=== PATIENT | male | born 1960 ===

== ENCOUNTER 2017-02-26 | Emergency (ER) | payer OTHER ==
[~2017-02-26] VITALS: Ht 170.2 cm; Wt 79.4 kg
[2017-02-26] MEDS ORDERED: BLOOD PRESSURE PILL (00:49)
[2017-02-26] MEDS ORDERED: INSULIN (00:49)
[2017-02-26] MEDS ORDERED: LEVOTHYROXINE (00:50)
--- NOTE | 2017-02-26 00:56 | NUR ---
DR. PADILLA AT BEDSIDE FOR MSE.
[2017-02-26] MEDS ORDERED: SULFAMETH/TRIMETH 800/160 MG TABLET PO ONE (01:00)
[2017-02-26] MEDS ORDERED: SULFAMETH/TRIMETH 800/160 MG TABLET ONE (01:18)
--- NOTE | 2017-02-26 01:20 | NUR ---
Patient discharged to home in stable conditon. Written and verbal after care instructions given. Patient verbalizes understanding of instructions. PATIENT LEFT WITH STABLE GAIT.
[2017-02-26 01:23] VITALS: BP 142/88
== END 2017-02-26 01:24 | disposition home or self-care (01) ==
LOC: ER
DX: L03.012 Cellulitis of left finger (principal); I10 Essential (primary) hypertension; E11.9 Type 2 diabetes mellitus without complications; Z79.4 Long term (current) use of insulin
CPT/HCPCS: A4663